=== PATIENT | female | born 1960 ===

== ENCOUNTER 2023-05-22 15:54 | Inpatient (IN) | payer OTHER ==
[~2023-05-22] VITALS: Ht 162.6 cm; Wt 68.9 kg
[2023-05-23] MEDS ORDERED: SYNTHROID50 MCG PO (13:53)
[2023-05-23] MEDS ORDERED: ZYLOPRIM100 MG PO (13:54)
[2023-05-23] MEDS ORDERED: NORVASC5 MG PO (13:54)
[2023-05-23] MEDS ORDERED: DEPAKOTE ER500 MG PO (13:54)
[2023-05-23] MEDS ORDERED: PRAVASTATIN SOD20 MG PO (13:55)
[2023-05-23] MEDS ORDERED: DIOVAN320 MG PO (13:55)
[2023-05-23] MEDS ORDERED: SEROQUEL400 MG PO (13:56)
[2023-05-23] MEDS ORDERED: BENZTROPINE MESY1 MG PO (15:07)
== END 2023-05-26 14:36 | disposition home or self-care (01) | DRG 741 ==
LOC: ADM 05-23 11:30 → O/R 05-25 06:24 → OB/GYN 05-25 06:24 → CIR.AMB 05-25 10:15 → OB/GYN 05-25 10:34 → EDSTATUS 05-25 11:30 → CIR.AMB 05-25 11:30 → SURH 05-25 11:30 → OB/GYN 05-26 14:36
PROVIDERS: ADMIT Obstetrics & Gynecology Gynecologic Oncology; ATTEND Obstetrics & Gynecology Gynecologic Oncology
PROC: 0UT74ZZ Resection of Bilateral Fallopian Tubes, Percutaneous Endoscopic Approach (ICD-10-PCS; 2023-05-25)
PROC: 0UT24ZZ Resection of Bilateral Ovaries, Percutaneous Endoscopic Approach (ICD-10-PCS; 2023-05-25)
PROC: 07BC4ZZ Excision of Pelvis Lymphatic, Percutaneous Endoscopic Approach (ICD-10-PCS; 2023-05-25)
PROC: 0UT94ZZ Resection of Uterus, Percutaneous Endoscopic Approach (ICD-10-PCS; principal; 2023-05-25 10:15)
DX: C54.1 Malignant neoplasm of endometrium (principal); Z20.822 Contact with and (suspected) exposure to COVID-19